=== PATIENT | female | born 1930 | race Caucasian/White ===

== ENCOUNTER → 2018-10-28 | Outpatient (CLI) | payer MEDICARE ==
[~2018-10-28] MED LIST: ADV250 IH; ALBU0.63 IH; AMLO2.5T2 PO; ASPI-1197 PO; CARV25TA77 PO; CITA-107 PO; CLOP75TA14 PO; EXEM25TA PO; FURO-151 PO; HYDR-4457 PO; IPRA4AER IH; ISOS20TA7 PO; LEVO25TA54 PO; LOSA25TA41 PO; RANI300T7 PO; ROSU5TAB PO; TEMA15CA PO; TYL3 PO
== END | disposition home or self-care (01) ==
LOC: RAH 14:22
PROVIDERS: ATTEND Internal Medicine
DX: R07.9 Chest pain, unspecified (principal); Z95.0 Presence of cardiac pacemaker
CPT/HCPCS: 71046